=== PATIENT | male | born 1985 | race Hispanic/Latino ===

== ENCOUNTER 2017-05-20 10:12 | Emergency (ER) | payer BC, OTHER ==
[2017-05-20 10:17] VITALS: TEMP 98
--- NOTE | 2017-05-20 10:56 | ED PDOC ---
HPI: Male Pain Time Seen by Provider: 05/20/17 10:19 Chief Complaint (Nursing): Groin Pain Chief Complaint (Provider): groin pain History Per: Patient Additional Complaint(s): Pt to ED for evaluation of bilateral non-radiating groin pain starting this morning. Reports 3 episodes of blood tinged emesis. Denies diarrhea, fever, chills, urinary symptoms, chest pain, shortness of breath, or any additional complaints at this time. Reports taking Advil 1 hour prior to arrival without relief. Past Medical History Vital Signs: Last Vital Signs Temp 98.0 F 05/20/17 10:17 Pulse 85 05/20/17 10:17 Resp 22 05/20/17 10:17 BP 158/94 H 05/20/17 10:17 Pulse Ox 98 05/20/17 10:17 - Medical History PMH: Denies: HIV, Chronic Kidney Disease - Surgical History Surgical History: Tonsillectomy - Family History Family History: States: Unknown Family Hx - Home Medications Home Medications: Ambulatory Orders Medication Instructions Recorded Azithromycin 500 mg PO DAILY #5 tab 03/13/15 Folic Acid 1 mg PO DAILY #0 tab 03/13/15 Ciprofloxacin [Cipro] 500 mg PO BID #10 tab 05/20/17 Tamsulosin [Flomax] 0.4 mg PO DAILY #5 cap 05/20/17 traMADol [Ultram] 50 mg PO Q4 #10 tab 05/20/17 - Allergies Allergies/Adverse Reactions: Allergies Allergy/AdvReac Type Severity Reaction Status Date / Time aspirin Allergy ANAPHYLAXIS Verified 05/20/17 10:34 - Laboratory Results Result Diagrams: 05/20/17 11:05 05/20/17 11:05 - ECG O2 Sat by Pulse Oximetry: 98 Medical Decision Making Medical Decision Making: IV access established and treatment initiated with Toradol and Zofran Pt afebrile WBC elevated 10.9 CT: IMPRESSION: Moderate left obstructive uropathy resulting from a 8 mm stone in the left mid ureter at the level of L3-4. Mild splenomegaly Pt educated on all results and demonstrated full understanding. Pt reports that pain has retunred, now 8/10. [address] Solano, urology, contacted and case discussed. Dr. Solano advised that Pt can be managed outpatient, he will see Pt in office today if he can get here by 15:30. If not, tomorrow morning. Pt made aware of plan and agreed. Reports no complaints of pain on re-eval. stable. Disposition - Clinical Impression Clinical Impression: Renal colic - Patient ED Disposition Is Patient to be Admitted: No - Disposition Referrals: Desmond Solano Jr., MD [Staff Provider] - Disposition: Routine/Home Disposition Time: 14:56 Condition: STABLE Prescriptions: Ciprofloxacin [Cipro] 500 mg PO BID #10 tab Tamsulosin [Flomax] 0.4 mg PO DAILY #5 cap traMADol [Ultram] 50 mg PO Q4 #10 tab Instructions: Kidney Stones (ED) Forms: [employer] ([place]) - POA Present On Arrival: None
[2017-05-20 11:14] LABS: BASO # 0.1 K/uL (0.0-0.2); BASO % 0.7 % (0.0-2.0); EOS % 0.4 % (0.0-4.0); HEMATOCRIT 38.4 % (35.0-51.0); LYMPH # 1.7 K/uL (1.0-4.3); LYMPH % 15.9 % (20.0-40.0); MEAN CELL VOLUME 95.9 fl (80.0-94.0); MEAN CORPUSCULAR HEMOGLOBIN 33.4 pg (27.0-31.0); MEAN CORPUSCULAR HGB CONC 34.8 g/dL (33.0-37.0); MONO # 0.7 K/uL (0.0-0.8); MONO % 6.7 % (0.0-10.0); NEUT # 8.3 K/uL (1.8-7.0); NEUT % 76.3 % (50.0-75.0); RED CELL DISTRIBUTION WIDTH 12.3 % (11.5-14.5); WHITE BLOOD COUNT 10.9 K/uL (4.8-10.8)
[2017-05-20 11:29] LABS: ALB/GLOB RATIO 1.3 (1.0-2.1); ALKALINE PHOSPHATASE 92 U/L (38-126); ALT/SGPT 44 U/L (21-72); AMYLASE 114 U/L (30-110); AST/SGOT 24 U/L (17-59); BLOOD UREA NITROGEN 19 mg/dl (9-20); CALCIUM 9.3 mg/dL (8.4-10.2); CARBON DIOXIDE 21 mmol/L (22-30); CHLORIDE 106 mmol/L (98-107); GFR AFRICAN-AMERICAN > 60; GLUCOSE,RANDOM 101 mg/dL (75-110); LIPASE 81 U/L (23-300); POTASSIUM 3.8 MMOL/L (3.6-5.0); SODIUM 139 mmol/l (132-148); TOTAL PROTEIN 7.9 G/DL (6.3-8.2)
--- NOTE | 2017-05-20 12:46 | CT ---
PROCEDURE: CT Abdomen and Pelvis without intravenous contrast HISTORY: b/l flank-groin pain COMPARISON: None. TECHNIQUE: CT scan of the abdomen and pelvis was performed without administration of intravenous contrast. Oral contrast was not administered. Coronal and sagittal reformatted images were obtained. Radiation dose: Total exam DLP = mGy-cm. This CT exam was performed using one or more of the following dose reduction techniques: Automated exposure control, adjustment of the mA and/or kV according to patient size, and/or use of iterative reconstruction technique. FINDINGS: LOWER THORAX: The right lung base is clear. There is subsegmental atelectasis in the left lung base. LIVER: Normal in size. No gross lesion or ductal dilatation. GALLBLADDER AND BILE DUCTS: No calcified gallstones. PANCREAS: Normal in size. No gross lesion or ductal dilatation. SPLEEN: Mild splenomegaly. ADRENALS: No discrete nodule. KIDNEYS AND URETERS: There is a 8 mm obstructing stone in the left mid ureter at the level of L3-4 with resultant mild dilatation of the proximal ureteral, mild hydronephrosis, edema and mild enlargement of the left kidney and significant perinephric inflammatory changes. The right kidney is normal in size without nephrolithiasis or hydronephrosis. VASCULATURE: No aortic aneurysm. BOWEL: The small bowel loops are normal in caliber. The colon is unremarkable. No bowel dilatation or obstruction. APPENDIX: Normal appendix. PERITONEUM: No free fluid. No free air. LYMPH NODES: No enlarged lymph nodes. BLADDER: Unremarkable. REPRODUCTIVE: Unremarkable. BONES: No acute fracture. There are hemangiomas in the T9 and T12 vertebral bodies. OTHER FINDINGS: None. IMPRESSION: Moderate left obstructive uropathy resulting from a 8 mm stone in the left mid ureter at the level of L3-4. Mild splenomegaly
[2017-05-20 14:06] LABS: RBC URINE 73 /hpf (0-3); URINE BILIRUBIN NEGATIVE (NEGATIVE); URINE BLOOD MODERATE (NEGATIVE); URINE COLOR YELLOW (YELLOW); URINE GLUCOSE (UA) NEG (Normal); URINE KETONE TRACE mg/dL (NEGATIVE); URINE LEUKOCYTE ESTERASE NEG Leu/uL (Negative); URINE PROTEIN 100 mg/dL (NEGATIVE); URINE UROBILINOGEN 0.2-1.0 mg/dL (0.2-1.0); WBC URINE 2 /hpf (0-5)
--- NOTE | 2017-05-20 14:51 | US ---
HISTORY: b/l testicular pain TECHNIQUE: Realtime sonography through the scrotum with color and doppler flow. COMPARISON: None. FINDINGS: RIGHT TESTICLE: Measures 5.4 x 3.0 x 2.1 cm. Normal echotexture and flow. There are microcalcifications in the lower pole, nonspecific. RIGHT EPIDIDYMIS: Epididymal head measures 1.0 x 0.7 x 1.1 cm. There is a 4 mm simple cyst, otherwise normal echotexture with normal flow. LEFT TESTICLE: Measures 5.4 x 2.9 x 2.0 cm. Normal echotexture and flow. LEFT EPIDIDYMIS: Epididymal head measures 0.9 x 1.0 x 0.7 cm. There is a 4 mm simple cyst, otherwise normal appearance with normal flow. HYDROCELE: None. VARICOCELE: None. OTHER FINDINGS: None. IMPRESSION: No evidence for testicular mass, torsion or epididymo-orchitis.
[2017-05-20 15:23] VITALS: BP 136/79; PULSE 68; RESP 18; O2SAT 99
== END 2017-05-20 16:11 | disposition home or self-care (01) ==
LOC: H.ER 10:12
DX: N23 Unspecified renal colic (principal); N20.1 Calculus of ureter
CPT/HCPCS: 74176; 80053; 81003; 82150; 83690; 85025; 93975; 96374; 99285; J1170; J1885; J2405